=== PATIENT | male | born 1950 | race African-American/Black ===

== ENCOUNTER 2022-05-08 19:19 | Emergency (ER) | payer MEDICAID, MEDICARE ==
[~2022-05-08] VITALS: Ht 172.7 cm; Wt 79.3 kg
[2022-05-08] MEDS ORDERED: FAMOTIDINE 20MG TABLET PO ONE (20:45)
[2022-05-08] MEDS ORDERED: SULFAMETHOXAZOLE/TRIMETHOPRIM 800/160MG TABLET PO ONE (20:45)
[2022-05-08] MEDS ORDERED: SULF1TAB48 MT (20:59)
[2022-05-08 22:24] VITALS: BP 132/85
== END 2022-05-08 22:22 | disposition home or self-care (01) ==
LOC: ER 19:19
DX: S50.361A Insect bite (nonvenomous) of right elbow, initial encounter (principal); L03.113 Cellulitis of right upper limb; W57.XXXA Bitten or stung by nonvenomous insect and other nonvenomous arthropods, initial encounter; Y93.89 Activity, other specified; Y92.89 Other specified places as the place of occurrence of the external cause
CPT/HCPCS: 99283